=== PATIENT | female | born 1985 | race Caucasian/White ===

== ENCOUNTER 2018-03-17 10:56 | Emergency (ER) | payer OTHER ==
[2018-03-17 11:00] VITALS: BP 128/74; PULSE 91; TEMP 100.7; BMI 33.2
[2018-03-17 11:13] LABS: PH,URINE 5.5 (4.5-8); URINE APPEARANCE Clear; URINE BILIRUBIN Negative (NEGATIVE); URINE GLUCOSE (UA) Negative (NEGATIVE); URINE KETONE Negative (NEGATIVE); URINE LEUK ESTERASE Negative (NEGATIVE); URINE NITRITE Negative (NEGATIVE); URINE PROTEIN Negative (NEGATIVE); URINE UROBILINOGEN 0.2 (0.2-1.0)
[2018-03-17 11:14] LABS: URINE COLOR AMBER
--- NOTE | 2018-03-17 11:16 | PDOC ---
History of Present Illness - General Chief Complaint: Cold Symptoms Stated Complaint: COUGH, FEVER Time Seen by Provider: 03/17/18 10:59 - History of Present Illness Initial Comments: 03/17/18 11:19 Chief complaint: Cough History of present illness: Complains of cough and congestion for several days. Also sore throat. No chest pain or shortness of breath. Low-grade fever. Review of systems: As noted above. Small amount of green sputum. Otherwise negative Past medical history: Healthy female, no active medical problems, no asthma or history of other lung or heart disease or diabetes. No medication. Social history: Denies smoking alcohol or nonprescription drugs. Works as a dental office receptionist, goes to school. Daughter with similar URI symptoms. Family history: Reviewed and noncontributory. Physical exam: Alert oriented well-developed well-nourished no acute distress cheerful and cooperative. No tachypnea or dyspnea Temperature 100.7. Respiratory rate 18 and unlabored. O2 sats saturation 100%. Pulse and blood pressure normal HEENT shows only mild pharyngeal injection without exudate swelling or mass Neck supple without bruit mass or nodes Breath sounds clear, full bilaterally, no wheezes rales or rhonchi. No tachypnea or dyspnea. No respiratory distress CV S1 and S2 normal without murmur rub or gallop pulses full and symmetric no JVD or edema no bruits Abdomen benign Skin clear, no rash, adequate turgor and wet mucous membranes Neurological intact Extremities no CCE Impression: Viral URI with cough, rule out strep Plan: Strep screen and further symptomatic management depending on results. Past History - Past Medical History Allergies/Adverse Reactions: Allergies Allergy/AdvReac Type Severity Reaction Status Date / Time No Known Allergies Allergy Verified 03/17/18 10:57 Home Medications: Ambulatory Orders Ibuprofen [Motrin -] 400 mg PO QID PRN #20 tablet 03/17/18 Promethazine HCl/Codeine [Prometh-Codein 6.25-10 mg/5 ml] 1 - 2 tsp PO TID PRN # 90 ml MDD 6 03/17/18 COPD: No GI Disorders: Yes (CONSTIPATION, H-PYLORI) - Immunization History Td Vaccination: Yes Immunization Up to Date: No - Suicide/Smoking/Psychosocial Hx Smoking Status: No Smoking History: Never smoked Number of Cigarettes Smoked Daily: 0 Hx Alcohol Use: No Drug/Substance Use Hx: No Substance Use Type: Alcohol *Physical Exam - Vital Signs Last Vital Signs Temp Pulse Resp BP Pulse Ox 100.7 F H 91 H 18 128/74 100 03/17/18 10:57 03/17/18 10:57 03/17/18 10:57 03/17/18 10:57 03/17/18 10:57 ED Treatment Course - ADDITIONAL ORDERS Additional order review: Laboratory Results 03/17/18 11:03 Urine Color Litzy Urine Appearance Clear Urine pH 5.5 Ur Specific [place] 1.015 Urine Protein Negative Urine Glucose (UA) Negative Urine Ketones Negative Urine Blood Trace-intact H Urine Nitrite Negative Urine Bilirubin Negative Urine Urobilinogen 0.2 Ur Leukocyte Esterase Negative Medical Decision Making - Medical Decision Making 03/17/18 12:27 Rapid strep is negative. Most likely viral URI with cough. No sign of pneumonia. No respiratory distress. Respiratory rate 18 and unlabored. O2 saturation 100%. Mildly improved after nebulizer treatment Continue symptomatic treatment and follow-up primary physician. Return to ER if there is high fever, chest pain, increased shortness of breath. *DC/Admit/Observation/Transfer Diagnosis at time of Disposition: Viral URI with cough - Discharge Dispostion Disposition: HOME Condition at time of disposition: Stable Decision to Admit order: No - Prescriptions Prescriptions: Ibuprofen [Motrin -] 400 mg PO QID PRN #20 tablet PRN Reason: fever, body aches Promethazine HCl/Codeine [Prometh-Codein 6.25-10 mg/5 ml] 1 - 2 tsp PO TID PRN # 90 ml MDD 6 PRN Reason: cough, congestion - Referrals - Patient Instructions Printed Discharge Instructions: DI for Viral Upper Respiratory Infection -- Adult Additional Instructions: Rest, fluids, Tylenol, expectorant cough medication as prescribed Return to ER if there is high fever, chest pain, or increasing shortness of breath. Otherwise follow-up with primary physician. - Post Discharge Activity Forms/Work/School Notes: Back to Work, Back to School
[2018-03-17 11:19] LABS: HCG,QUALITATIVE URINE Negative
[2018-03-17] MEDS ORDERED: ACETAMINOPHEN 325 MG TABLET (FP) ONE (11:39)
[2018-03-17] MEDS ORDERED: ACETAMINOPHEN 325 MG TABLET (FP) PO ONE (11:46)
[2018-03-17] MEDS ORDERED: ALBUTEROL SO4 0.083% IH SOL 2.5 MG/3 ML VIAL.NEB. NEB ONE ×2 (12:11→12:20)
[2018-03-17 12:32] LABS: EPI CELLS MOD /HPF; URINE RBC 0-3 /hpf (0-3); URINE WBC 0-1 (0-5)
== END 2018-03-17 13:03 | disposition home or self-care (01) ==
LOC: FER 10:56
PROC: 3E0F7GC Introduction of Other Therapeutic Substance into Respiratory Tract, Via Natural or Artificial Opening (ICD-10-PCS; principal; 2018-03-17)
DX: J06.9 Acute upper respiratory infection, unspecified (principal); R05 Cough; K59.00 Constipation, unspecified
CPT/HCPCS: 81003; 81015; 84703; 87070; 87430; 99282-25

== ENCOUNTER 2018-03-22 16:05 | Emergency (ER) | payer OTHER ==
[2018-03-22 17:33] VITALS: BP 120/79; PULSE 77; TEMP 99; BMI 33.1
--- NOTE | 2018-03-22 19:24 | PDOC ---
History of Present Illness - General History Source: Patient Exam Limitations: No Limitations - History of Present Illness Initial Comments: 03/22/18 19:40 The patient is a 32 year old female with no significant past medical history who presents to the ED with complaints of fevers, shortness of breath and productive cough for a week. The patient was seen on 03/17/18 for the same symptoms where she was told she had a viral cold. Since then her symptoms have worsened where she is now coughing up yellow/green sputum as well as high fevers (tmax 103). She reports having associated nasal congestion and headache. She reports having relief with her daughter's albuterol nebulizer treatments and states her daughter was sick at home as well. She denies any chest pain, nausea, vomiting, diarrhea, or urinary complaints. <Ruth Guzman - Last Filed: 03/22/18 19:45> <Salina Sebastian - Last Filed: 03/23/18 06:27> - General Chief Complaint: Respiratory Stated Complaint: COUGH Time Seen by Provider: 03/22/18 16:19 Past History <Ruth Guzman - Last Filed: 03/22/18 19:45> - Past Medical History COPD: No GI Disorders: Yes (CONSTIPATION, H-PYLORI) - Immunization History Td Vaccination: Yes Immunization Up to Date: No - Suicide/Smoking/Psychosocial Hx Smoking Status: No Smoking History: Never smoked Number of Cigarettes Smoked Daily: 0 Hx Alcohol Use: No Drug/Substance Use Hx: No Substance Use Type: Alcohol <Salina Sebastian - Last Filed: 03/23/18 06:27> - Past Medical History Allergies/Adverse Reactions: Allergies Allergy/AdvReac Type Severity Reaction Status Date / Time No Known Allergies Allergy Verified 03/17/18 10:57 Home Medications: Ambulatory Orders Ibuprofen [Motrin -] 400 mg PO QID PRN #20 tablet 03/17/18 Promethazine HCl/Codeine [Prometh-Codein 6.25-10 mg/5 ml] 1 - 2 tsp PO TID PRN # 90 ml MDD 6 03/17/18 Albuterol Sulfate 0.5% [Ventolin 0.5% Nebulizing Soln. -] 1 amp NEB TID PRN #20 amp 03/22/18 Azithromycin 250 mg PO DAILY #4 tablet 03/22/18 Azithromycin [Zithromax 250mg Tablets -] 250 mg PO DAILY #4 tab 03/22/18 Review of Systems - Review of Systems Able to Perform ROS?: Yes Comments:: 03/22/18 19:41 CONSTITUTIONAL: No reported: Fever, Chills, Diaphoresis, Generalized Weakness, Malaise, Loss of Appetite HEENT: (+) nasal congesion No reported: Rhinorrhea, Throat Pain, Throat Swelling, Difficulty Swallowing, Mouth Swelling, Ear Pain, Eye Pain, Visual Changes CARDIOVASCULAR: No reported: Chest Pain, Syncope, Palpitations, Irregular Heart Rate, Lightheadedness, Peripheral Edema RESPIRATORY: (+) cough, shortness of breath, wheezing No reported: SOB with Exertion, Orthopnea, Stridor, Hemoptysis GASTROINTESTINAL: No reported: Abdominal pain, Abdominal Distension, Nausea, Vomiting, Diarrhea, Constipation, Melena, Hematochezia GENITOURINARY: No reported: Dysuria, Frequency, Urgency, Hesitancy, Flank Pain, Genital Pain MUSCULOSKELETAL: No reported: Myalgia, Arthralgia, Joint Swelling, Back pain, Neck Pain SKIN: No reported: Rash, Itching, Pallor HEMEATOLOGIC/IMMUNOLOGIC: No reported: Easy Bleeding, Easy Bruising, Lymphadenopathy, Frequent infections ENDOCRINE: No reported: Unexplained Weight Gain, Unexplained Weight Loss, Heat Intolerance , Cold Intolerance NEUROLOGIC: (+) headache No reported: Focal Weakness, Paresthesias, Vertigo, Lightheadedness, Unsteady Gait, Seizure, Mental Status Changes, Incontinence PSYCHIATRIC: No reported: Anxiety, Depression All Other Systems: Reviewed and Negative <Ruth Guzmna - Last Filed: 03/22/18 19:45> *Physical Exam - Vital Signs Last Vital Signs Temp Pulse Resp BP Pulse Ox 99.0 F 77 16 120/79 100 03/22/18 16:06 03/22/18 16:06 03/22/18 16:06 03/22/18 16:06 03/22/18 16:06 - Physical Exam Comments: 03/22/18 19:42 GENERAL: The patient is awake, alert, and fully oriented, Nontoxic - in no acute distress. HEAD: Normocephalic, atraumatic. EYES: extraocular movements intact, sclera anicteric, conjunctiva clear. ENT: (+) bilateral frontal sinus tenderness. Normal voice, Moist mucous membranes. NECK: Normal range of motion, supple LUNGS: Breath sounds equal, clear to auscultation bilaterally. No wheezes, no rhonchi, no rales. HEART: Regular rate and rhythm, without murmur, rub or gallop. ABDOMEN: Soft, nontender, normoactive bowel sounds. No guarding, no rebound.No CVA tenderness EXTREMITIES: Normal range of motion, no edema. No clubbing or cyanosis. No cords , erythema, or tenderness. NEUROLOGICAL: No facial assymetry, Normal speech, PSYCH: Normal mood, normal affect. SKIN: Warm, Dry, normal turgor, <Ruth Guzman - Last Filed: 03/22/18 19:45> - Vital Signs Last Vital Signs Temp Pulse Resp BP Pulse Ox 99.0 F 77 16 120/79 100 03/22/18 16:06 03/22/18 16:06 03/22/18 16:06 03/22/18 16:06 03/22/18 16:06 <Salina Sebastian - Last Filed: 03/23/18 06:27> Moderate Sedation - Procedure Monitoring Vital Signs: Vital Signs Temp Pulse Resp BP Pulse Ox 99.0 F 77 16 120/79 100 03/22/18 16:06 03/22/18 16:06 03/22/18 16:06 03/22/18 16:06 03/22/18 16:06 <Ruth Guzman - Last Filed: 03/22/18 19:45> - Procedure Monitoring Vital Signs: Vital Signs Temp Pulse Resp BP Pulse Ox 99.0 F 77 16 120/79 100 03/22/18 16:06 03/22/18 16:06 03/22/18 16:06 03/22/18 16:06 03/22/18 16:06 <Salina Sebastian - Last Filed: 03/23/18 06:27> Progress Note - Progress Note Progress Note: Documentation has been prepared under my direction and personally reviewed by me in its entirety. I attest that this documented accurately reflects all work, treatment, procedures and medical decision making performed by me. <Salina Sebastian - Last Filed: 03/23/18 06:27> Medical Decision Making - Medical Decision Making 32-year-old woman without history of asthma or other respiratory illnesses and nonsmoker presents with productive cough accompanied by fever. Exam as noted Chest x-ray shows no evidence of infiltrate/effusion/masses/pneumothorax Clinical presentation most consistent with bronchitis, possible sinusitis Patient given DuoNeb treatment since she has had medical response at home using her daughter's albuterol nebulizer treatment. Azithromycin (Z-Juan Alberto) started for presumed sinusitis/bronchitis. First dose of 500 mg azithromycin given here in the emergency room. <Salina Sebastian - Last Filed: 03/23/18 06:27> *DC/Admit/Observation/Transfer - Attestations Scribe Attestion: 03/22/18 19:42 Documentation prepared by Ruth Guzman, acting as medical assisting instructor for Salina Sebastian MD. <Ruth Guzman - Last Filed: 03/22/18 19:45> <Salina Sebastian - Last Filed: 03/23/18 06:27> Diagnosis at time of Disposition: Bronchitis - Discharge Dispostion Disposition: HOME Condition at time of disposition: Stable - Prescriptions Prescriptions: Albuterol Sulfate 0.5% [Ventolin 0.5% Nebulizing Soln. -] 1 amp NEB TID PRN #20 amp PRN Reason: Wheezing Azithromycin 250 mg PO DAILY #4 tablet Azithromycin [Zithromax 250mg Tablets -] 250 mg PO DAILY #4 tab - Referrals Referrals: Emiliana Cuello MD [Primary Care Provider] - - Patient Instructions Printed Discharge Instructions: DI for Acute Bronchitis Additional Instructions: Rest; drink plenty of fluids Azithromycin 250 mg daily for the next 4 days Albuterol nebulizer treatment up to 3 times a day as needed for wheezing/ shortness of breath Continue to use promethazine cough syrup as needed no work/school for the next 2 days Return to ER if you have persistent shortness of breath/wheezing/high fever Follow-up with your general doctor within the next 2-3 days - Post Discharge Activity Forms/Work/School Notes: Back to Work, Back to School
[2018-03-22] MEDS ORDERED: ALBUTEROL SO4 2.5/IPRATROPIUM 0.5 INH SOL 3 ML VIAL.NEB. NEB ONE ×2 (19:43→19:49)
[2018-03-22] MEDS ORDERED: AZITHROMYCIN 500 MG TABLET PO ONE (19:44)
[2018-03-22] MEDS ORDERED: AZITHROMYCIN 250 MG TABLET ONE (19:49)
== END 2018-03-22 20:23 | disposition home or self-care (01) ==
LOC: FER 16:05
PROC: 3E0F7GC Introduction of Other Therapeutic Substance into Respiratory Tract, Via Natural or Artificial Opening (ICD-10-PCS; principal; 2018-03-22)
DX: J40 Bronchitis, not specified as acute or chronic (principal)
CPT/HCPCS: 71046-TC-FY; 99281-25; J7620

== ENCOUNTER 2019-03-02 14:53 | Emergency (ER) | payer OTHER ==
[2019-03-02 15:06] VITALS: BP 106/66; PULSE 78; TEMP 97.8; BMI 35.2
[2019-03-02] MEDS ORDERED: KETOROLAC TROMETHAMINE 30 MG/1 ML VIAL IM ONE (15:21)
--- NOTE | 2019-03-02 15:24 | PDOC ---
History of Present Illness - General History Source: Patient Exam Limitations: No Limitations - History of Present Illness Initial Comments: 03/02/19 15:22 33 yo F with a hx of back pain presents with acute on chronic back pain since Thursday. Same quality as previous cramp like back pain, but with higher severity (10/10) and does not terminate after her usual pain control medications ( diclofenac). Located left mid paravertebral to posterior axilla line worsens with laying in bed and bending forward and extending back without radiation. Denies the following: dysuria, hematuria, nausea, vomiting, fever, chills, hx of nephrolithiasis, new exercises, an inciting msk event, SOB, and chest pain. 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 Denies the following: fever, chills, nausea, vomiting, visual changes, abdominal pain, recent travel, trauma , and leg pain/swelling. Shx: None Allergies: NKDA Social: Denies tobacco, alcohol, and substance abuse. <Joseph Mark - Last Filed: 03/02/19 18:07> <Ginger Melo - Last Filed: 03/02/19 18:53> - General Chief Complaint: Back Pain Stated Complaint: BACK PAIN 3 DAYS Time Seen by Provider: 03/02/19 15:21 Attending Attestation - Resident Resident Name: Joseph Mark - ED Attending Attestation I have performed the following: I have examined & evaluated the patient, The case was reviewed & discussed with the resident, I agree w/resident's findings & plan, Exceptions are as noted - HPI HPI: 33 y/o lady complaining of left periscapular area pain in the last 24 hours. Denies any heavy lifting although she has a 2 year old daughter 03/02/19 18:47 - Physicial Exam PE: Alert, oriented x 3, ambulatory. Pain at pressure over left periscapular musculature. Lungs clear Neuro intact 03/02/19 18:49 - Medical Decision Making Impression Muscular strai Discharged home with muscular pain relaxants 03/02/19 18:51 <Ginger Melo S - Last Filed: 03/02/19 18:53> Past History - Past Medical History COPD: No GI Disorders: Yes (CONSTIPATION, H-PYLORI) - Immunization History Td Vaccination: Yes Immunization Up to Date: No - Suicide/Smoking/Psychosocial Hx Smoking Status: No Smoking History: Never smoked Number of Cigarettes Smoked Daily: 0 Information on smoking cessation initiated: No Hx Alcohol Use: Yes (OCCASSIONAL) Drug/Substance Use Hx: No Substance Use Type: Alcohol <Joseph Mark - Last Filed: 03/02/19 18:07> <DuarteluisGinger valverde Dona - Last Filed: 03/02/19 18:53> - Past Medical History Allergies/Adverse Reactions: Allergies Allergy/AdvReac Type Severity Reaction Status Date / Time No Known Allergies Allergy Verified 03/02/19 14:55 Home Medications: Ambulatory Orders Diclofenac Sodium 75 mg PO BID 03/02/19 Methocarbamol [Robaxin -] 500 mg PO TID #21 tablet 03/02/19 Naproxen [Naprosyn -] 500 mg PO BID #14 tablet 03/02/19 Review of Systems - Review of Systems Able to Perform ROS?: Yes Is the patient limited Trinidadian proficient: No Constitutional: No: Chills, Diaphoresis, Fever HEENTM: No: Eye Pain, Recent change in vision, Ear Pain, Nose Pain, Throat Pain , Mouth Pain Respiratory: No: Cough, Shortness of Breath, Hemoptysis Cardiac (ROS): No: Chest Pain, Irregular Heart Rate, Lightheadedness, Palpitations, Syncope ABD/GI: No: Constipated, Diarrhea, Nausea, Poor Fluid Intake, Rectal Bleeding, Vomiting, Abdominal cramping, Tarry Stools : No: Burning, Dysuria, Hematuria, Incontinence Musculoskeletal: Yes: Back Pain. No: Joint Pain, Neck Pain Integumentary: No: Bruising, Erythema, Rash Neurological: No: Headache, Numbness, Tingling, Tremors Psychiatric: No: Change in Appetite Endocrine: No: Unexplained Weight Gain Hematologic/Lymphatic: No: Anemia <DeedeeJoseph - Last Filed: 03/02/19 18:07> *Physical Exam - Vital Signs Last Vital Signs Temp Pulse Resp BP Pulse Ox 97.8 F 78 16 106/66 100 03/02/19 14:54 03/02/19 14:54 03/02/19 14:54 03/02/19 14:54 03/02/19 14:54 - Physical Exam General Appearance: Yes: Nourished, Appropriately Dressed. No: Apparent Distress, Intoxicated HEENT: positive: EOMI, RADHA, Normal Voice, Symmetrical, Pharynx Normal, Hearing Grossly Normal. negative: Pale Conjunctivae, Scleral Icterus (R), Scleral Icterus (L), Muffled/Hoarse voice, Pharyngeal Erythema, Tonsillar Exudate, Tonsillar Erythema, Nasal Congestion, Rhinorrhea, Sinus Tenderness, Excessive drooling Neck: positive: Trachea midline, Supple. negative: Tender, Lymphadenopathy (R) , Lymphadenopathy (L), Tender lateral, Tender midline Respiratory/Chest: positive: Lungs Clear, Normal Breath Sounds. negative: Chest Tender, Respiratory Distress, Accessory Muscle Use, Rales, Rhonchi, Stridor, Wheezing Cardiovascular: positive: Regular Rhythm, Regular Rate, S1, S2. negative: Systolic Murmur Gastrointestinal/Abdominal: positive: Normal Bowel Sounds, Flat, Soft. negative : Tender, Distended, Guarding, Rebound, Tenderness Lymphatic: negative: Adenopathy Musculoskeletal: positive: Normal Inspection, Other (increased pain when abducting left arm in the inferior scapular region on left side. increased pain with pulling on left side in inferior scapular side. ). negative: CVA Tenderness, Vertebral Tenderness Extremity: positive: Normal Capillary Refill, Normal Inspection, Normal Range of Motion. negative: Tender, Swelling, Calf Tenderness Integumentary: positive: Normal Color, Dry, Warm. negative: Petechiae, Rash, Swelling Neurologic: positive: quality assistant II-XII NML intact, Fully Oriented, Alert, Normal Mood/ Affect, Normal Response, Motor Strength 5/5. negative: Facial Droop, Numbness, Sensory Deficit <Joseph Mark - Last Filed: 03/02/19 18:07> - Vital Signs Last Vital Signs Temp Pulse Resp BP Pulse Ox 97.8 F 78 16 106/66 100 03/02/19 14:54 03/02/19 14:54 03/02/19 14:54 03/02/19 14:54 03/02/19 14:54 <Ginger Melo - Last Filed: 03/02/19 18:53> ED Treatment Course - ADDITIONAL ORDERS Additional order review: Laboratory Results 03/02/19 15:26 Urine HCG, Qual Negative - Medications Given in the ED: ED Medications Discontinued Medications Generic Name Dose Route Start Last Admin Trade Name Freq PRN Reason Stop Dose Admin Ketorolac Tromethamine 30 mg 03/02/19 15:21 03/02/19 15:45 Toradol Injection - IM 03/02/19 15:22 30 mg ONCE ONE Administration <Ginger Melo - Last Filed: 03/02/19 18:53> Medical Decision Making - Medical Decision Making 33 yo F with a hx of back pain presents with acute on chronic back pain since Thursday. Same quality as previous cramp like back pain, but with higher severity (10/) and does not terminate after her usual pain control medications ( diclofenac). Initial vitals: Initial Vital Signs Temp Pulse Resp BP Pulse Ox 97.8 F 78 16 106/66 100 03/02/19 14:54 03/02/19 14:54 03/02/19 14:54 03/02/19 14:54 03/02/19 14:54 Work up: ddx: back pain from msk likely due to physical exam consistent with diagnosis. patient was given toradol after negative and had significant improvement in pain. she was given a prescription for muscle relaxer and PMD follow up. stable at discharge. Dispo: Discharge 03/02/19 18:07 <Joseph Mark - Last Filed: 03/02/19 18:07> *DC/Admit/Observation/Transfer - Discharge Dispostion Decision to Admit order: No <Joseph Mark - Last Filed: 03/02/19 18:07> <Ginger Melo - Last Filed: 03/02/19 18:53> Diagnosis at time of Disposition: Back pain Qualifiers: Back pain location: back pain in unspecified location Chronicity: acute Back pain laterality: left Qualified Code(s): M54.9 - Dorsalgia, unspecified - Discharge Dispostion Disposition: HOME Condition at time of disposition: Stable - Prescriptions Prescriptions: Methocarbamol [Robaxin -] 500 mg PO TID #21 tablet Naproxen [Naprosyn -] 500 mg PO BID #14 tablet - Referrals Referrals: Xochitl Santana MD [Primary Care Provider] - - Patient Instructions Printed Discharge Instructions: DI for Low Back Pain, DI for Thoracic Back Pain Additional Instructions: you were seen in the emergency department for your back pain. please take the medications as prescribed. do not operate heavy machinery or drive while taking robaxin. please return to the emergency department if you have worsening symptoms or new concerning symptoms such as in ability to urinate, inability to tolerate the pain, inability to walk. thank you. - Post Discharge Activity Forms/Work/School Notes: Back to Work
[2019-03-02] MEDS ORDERED: KETOROLAC TROMETHAMINE 30 MG/1 ML VIAL ONE (15:31)
== END 2019-03-02 16:23 | disposition home or self-care (01) ==
LOC: FER 14:53
PROC: 3E0233Z Introduction of Anti-inflammatory into Muscle, Percutaneous Approach (ICD-10-PCS; principal; 2019-03-02)
DX: M54.9 Dorsalgia, unspecified (principal); G89.29 Other chronic pain
CPT/HCPCS: 84703; 99282-25